=== PATIENT | male | born 1955 | race Caucasian/White ===

== ENCOUNTER 2018-07-18 20:04 | Emergency (ER) | payer MEDICARE ==
[~2018-07-18] VITALS: Ht 180.3 cm; Wt 72.6 kg
[2018-07-18 20:55] VITALS: BP 160/92
[2018-07-18] MEDS ORDERED: NEURONTIN600 MG ORAL (20:58)
[2018-07-18] MEDS ORDERED: CYMBALTA60 MG ORAL (20:58)
[2018-07-18] MEDS ORDERED: CYCLOBENZAPRINE10 MG ORAL (20:58)
[2018-07-18] MEDS ORDERED: HALOPERIDOL0.5 MG ORAL (20:58)
--- NOTE | 2018-07-18 21:00 | NUR ---
ED Nurse Note: ambulated in to ER due to noncompliant with psych meds x 4days. Pt has meds with the pt. Hx bipolar and schizo. Pt states that he is hungry and wants to stay indoor.
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
[2018-07-18 21:30] VITALS: BP 160/92
--- NOTE | 2018-07-18 21:32 | NUR ---
Homeless Discharge: Patient is being discharged from medical care. Awake, alert and oriented x3. After care instructions, including referral to community resources were given. Patient verbalized understanding of After care instructions; at this time patient does not request medications, equipment or placement. Patient signed patient consent in the medical record for patient destination upon discharge. All medical devices such as ID band were removed. Pt is currently staying in the waiting room. Pt refused to provide placement that he will be going to but requested to stay in the waiting room till morning. [place] and juice provided to patient and pt is properly dressed for the weather.
== END 2018-07-18 21:30 | disposition home or self-care (01) ==
LOC: EMR 21:12
DX: Z76.0 Encounter for issue of repeat prescription (principal); F91.9 Conduct disorder, unspecified; J45.909 Unspecified asthma, uncomplicated; F20.9 Schizophrenia, unspecified
CPT/HCPCS: 99282